=== PATIENT | male | born 1995 | race Caucasian/White ===

== ENCOUNTER 2019-08-15 05:45 | Emergency (ER) | payer BC ==
[~2019-08-15] VITALS: Ht 198.1 cm; Wt 185.5 kg
[2019-08-15 05:51] VITALS: BP 155/96; TEMP 98.2
[2019-08-15] MEDS ORDERED: AMOXICILLIN 50500 MG PO (06:06)
[2019-08-15] MEDS ORDERED: ZOVIRAX400 MG PO (06:22)
[2019-08-15] MEDS ORDERED: PREDNISONE20 MG PO (06:31)
[2019-08-15] MEDS ORDERED: MAGIC MOUTH PO (06:31)
[2019-08-15 07:00] VITALS: PULSE 100
== END 2019-08-15 07:05 | disposition home or self-care (01) ==
LOC: COL.ER 05:45
DX: B00.2 Herpesviral gingivostomatitis and pharyngotonsillitis (principal); J03.90 Acute tonsillitis, unspecified
CPT/HCPCS: J0696